=== PATIENT | female | born 1995 | race Caucasian/White ===

== ENCOUNTER 2016-11-10 13:31 | Emergency (ER) | payer BC ==
[2016-11-10 14:24] LABS: BILIRUBIN,URINE NEGATIVE (NEGATIVE); BLOOD/HEMOGLOBIN,URINE 1+ (NEGATIVE); GLUCOSE, URINE NEGATIVE (NEGATIVE); KETONES,URINE 1+ (NEGATIVE); LEUKOCYTE ESTERASE ,URINE 1+ (NEGATIVE); NITRITES,URINE NEGATIVE (NEGATIVE); PROTEIN,URINE 1+ (NEGATIVE); UROBILINOGEN,URINE NORMAL (NORMAL)
--- NOTE | 2016-11-10 14:36 | US ---
HISTORY: New onset lower abdominal pain. Right lower quadrant pain. Study: OB ultrasound greater than 14 weeks Comparison: April 20, 2016. Technique: Multiple grayscale and color flow Doppler images of the pelvis were obtained with focused evaluation of the fetus. Findings: A viable single intrauterine is identified with heart tones of 150 beats per minute. A breech presentation is observed. Normal amniotic fluid volume is observed. Evaluation of the fe fartun anatomy including the urinary bladder, and four-chamber heart are unremarkable. The extremities and spine are normal in their sonographic appearance. A three-vessel cord is observed. No intracr anial abnormality can be identified. Value Estimated Gestational Age BPD 3.7 cm 17 weeks 2 days HC 14.5 cm 17 weeks 5 days AC 11.6 cm 17 weeks 2 days FL 2.5 cm 17 weeks 4 days IMPRESSION: 1. Single intrauterine with an average ultrasound age of 17 weeks 3 days correspond to an estimated date of delivery of April 18, 2017. 2. No anatomical abnormalities can be identified. Reported By:
[2016-11-10 14:38] LABS: ALANINE AMINOTRANSFERASE 20 Units/L (12-78); ALBUMIN 3.5 g/dL (3.4-5.0); ALKALINE PHOSPHATASE 66 Units/L (46-116); ASPARTATE AMINO TRANSFERASE 16 Units/L (15-37); BLOOD UREA NITROGEN 5 mg/dL (7-18); CALCIUM 8.8 mg/dL (8.5-10.1); CHLORIDE 103 mmol/L (98-107); CREATININE 0.55 mg/dL (0.55-1.02); GLUCOSE 86 mg/dL (65-99); SODIUM 139 mmol/L (136-145); TOTAL PROTEIN 7.4 g/dL (6.4-8.2); eGFR BLACK RACES > 60 (>60); eGFR NON BLACK RACES > 60 (>60)
[2016-11-10 14:46] LABS: BASOPHILS # (AUTO) 0.1 X10^3/uL (0.0-0.1); BASOPHILS % (AUTO) 0.5 % (0.2-1.0); EOSINOPHILS # (AUTO) 0.2 x10^3/uL (0.0-0.2); EOSINOPHILS % (AUTO) 1.7 % (0.9-2.9); HEMATOCRIT 33.4 % (36.0-47.0); HEMOGLOBIN 11.4 g/dL (12.0-16.0); LYMPHOCYTES # (AUTO) 1.6 X10^3/uL (1.3-2.9); LYMPHOCYTES % (AUTO) 13.8 % (21.0-51.0); MEAN CORPUSCULAR HEMOGLOBIN 27.8 pg (27.0-34.0); MEAN CORPUSCULAR HGB CONC 34.1 g/dL (33.0-35.0); MEAN CORPUSCULAR VOLUME 81.5 fL (80.0-100.0); MEAN PLATELET VOLUME 7.7 fL (7.4-11.0); MONOCYTES # (AUTO) 0.6 x10^3/uL (0.3-0.8); NEUTROPHILS # (AUTO) 9.1 x10^3/uL (2.2-4.8); PLATELET COUNT 256 X10^3/uL (150.0-450.0); RED BLOOD COUNT 4.09 X10^6/uL (3.5-5.4); RED CELL DISTRIBUTION WIDTH 13.4 % (11.6-16.5); WHITE BLOOD COUNT 11.6 X10^3/uL (3.6-10.0)
[2016-11-10 14:54] LABS: APPEARANCE,URINE HAZY (CLEAR); BACTERIA,URINE 4+ /HPF (NEGATIVE); COLOR,URINE YELLOW (YELLOW); RBC,URINE 0-2 /HPF (NEGATIVE); SQUAMOUS EPITHELIAL CELL,UR FEW /HPF (NEGATIVE)
[2016-11-10 15:09] LABS: HCG,QUANTITATIVE 25951 mIU/mL (0-6)
[2016-11-10] MEDS ORDERED: MACROBID CAP 100 MG EXT REL PO ONE ×2 (15:09→15:37)
--- NOTE | 2016-11-10 15:38 | DR.PREG ---
HPI - Nurses Notes Reviewed Nurses Notes Review: Yes - Source History Provided: Patient - Mode of Arrival Mode of Arrival: Ambulatory - Context Complains of: Pelvic pain Blood Type: O, Neg - Location Location: pain: RLQ, LLQ, Suprapubic - Quality Pain: Sharp Vaginal fluid leakage color: None - Timing Came on: Suddenly Pain: Resolved Pain Frequency: Hours - Duration Pain Strength: Moderate - Severity Vaginal Bleeding: Other (NONE) Vaginal Leakage: None - Associated Signs & Symptoms Asociated signs & symptoms: None PMH - PMH Past Medical History: Hypothyroidism Past Surgical History: Yes Surgical History: Other - Family History Family Medical History: Cancer, Hypertension - Social History Do you use any recreational Drugs:: No ROS - Review of Systems Constitutional: No Symptoms Reported Eyes: No Symptoms Reported ENTM: No Symptoms Reported Respiratoy: No Symptoms Reported Cardiovascular: No Symptoms Reported Gastrointestinal/Abdominal: Abdominal Pain, Nausea Genitourinary: No Symptoms Reported. negative: Dysuria, Frequency, Hematuria Neurological: negative: Headache, Weakness, Dizziness Musculoskeletal: No Symptoms Reported Integumentary: No Symptoms Reported Hematologic/Lymphatic: No Symptoms Reported Endocrine: No Symptoms Reported All Other Systems: Reviewed and Negative PE - Vital Signs Vitals: Blood Pressure 118/87 - General Limitations: No Limitations General Appearance: Alert - Head Head Exam: Normal Inspection - Eyes Eye exam: Normal Appearance - ENT ENT Exam: Normal External Ear Exam - Neck Neck Exam: Trachea Midline. negative: Tenderness, Meningismus, Lymphadenopathy - Chest Chest Inspection: Symmetric Chest Wall Rise - Respiratory Respiratory Exam: Normal Lung Sounds Bilat Respiratory Exam: Bilateral Clear to Auscultation - Cardiovascular Cardiovascular Exam: Regular Rate, Normal Rhythm, Normal Heart Sounds - Abdominal Exam Abdominal Exam: Normal Bowel Sounds, Soft. negative: Tenderness - Back Back Exam: Normal Inspection - Extremeties Extremities Exam: Normal Inspection - Neurologic Neurological Exam: Alert, Oriented X3 - Psychiatric Psychiatric Exam: Anxious - Skin Skin Exam: Warm, Intact MDM - Additional Information Obtained Additional Information Obtained From: Family - Differential Diagnosis Differential Diagnosis: threatened, Discomfort of , Urinary tract infection Course - Treatment Treatment: SEE ORDERS - Consultation Consultation Comments: DISCUSS PATIENT WITH DR. ALAS. SHE WILL FOLLOW HER UP IN THE OFFICE. BED REST TILL SUNDAY. - Education/Counseling Education/Counseling: Patient, Education Educated On: Treatment, Diagnosis ROR - Labs Reviewed Laboratory Results Reviewed?: Yes Result Diagrams: 11/10/16 14:18 11/10/16 14:18 Laboratory: WBC 11.6 X10^3/uL (3.6-10.0) H 11/10/16 14:18 RBC 4.09 X10^6/uL (3.5-5.4) 11/10/16 14:18 Hgb 11.4 g/dL (12.0-16.0) L 11/10/16 14:18 Hct 33.4 % (36.0-47.0) L 11/10/16 14:18 MCV 81.5 fL (80.0-100.0) 11/10/16 14:18 MCH 27.8 pg (27.0-34.0) 11/10/16 14:18 MCHC 34.1 g/dL (33.0-35.0) 11/10/16 14:18 RDW 13.4 % (11.6-16.5) 11/10/16 14:18 Plt Count 256 X10^3/uL (150.0-450.0) 11/10/16 14:18 MPV 7.7 fL (7.4-11.0) 11/10/16 14:18 Neut % 79.0 % (42.0-75.0) H 11/10/16 14:18 Lymph % 13.8 % (21.0-51.0) L 11/10/16 14:18 [place] % 5.0 % (0.0-13.0) 11/10/16 14:18 Eos % 1.7 % (0.9-2.9) 11/10/16 14:18 Baso % 0.5 % (0.2-1.0) 11/10/16 14:18 Neut # 9.1 x10^3/uL (2.2-4.8) H 11/10/16 14:18 Lymph # 1.6 X10^3/uL (1.3-2.9) 11/10/16 14:18 [place] # 0.6 x10^3/uL (0.3-0.8) 11/10/16 14:18 Eos # 0.2 x10^3/uL (0.0-0.2) 11/10/16 14:18 Baso # 0.1 X10^3/uL (0.0-0.1) 11/10/16 14:18 Absolute Nucleated RBC 0.0 /100WBC 11/10/16 14:18 Sodium 139 mmol/L (136-145) 11/10/16 14:18 Corrected Sodium TNP 11/10/16 14:18 Potassium 3.4 mmol/L (3.5-5.1) L 11/10/16 14:18 Chloride 103 mmol/L (98-107) 11/10/16 14:18 Carbon Dioxide 25.0 mmol/L (21-32) 11/10/16 14:18 BUN 5 mg/dL (7-18) L 11/10/16 14:18 Creatinine 0.55 mg/dL (0.55-1.02) 11/10/16 14:18 Est GFR (MDRD) Af Amer > 60 (>60) 11/10/16 14:18 Est GFR (MDRD) Non-Af > 60 (>60) 11/10/16 14:18 Glucose 86 mg/dL (65-99) 11/10/16 14:18 Calcium 8.8 mg/dL (8.5-10.1) 11/10/16 14:18 Corrected Calcium TNP 11/10/16 14:18 Total Bilirubin 0.20 mg/dL (0.2-1.0) 11/10/16 14:18 AST 16 Units/L (15-37) 11/10/16 14:18 ALT 20 Units/L (12-78) 11/10/16 14:18 Alkaline Phosphatase 66 Units/L (46-116) 11/10/16 14:18 Total Protein 7.4 g/dL (6.4-8.2) 11/10/16 14:18 Albumin 3.5 g/dL (3.4-5.0) 11/10/16 14:18 Globulin 3.9 g/dL (2.5-4.5) 11/10/16 14:18 Albumin/Globulin Ratio 0.9 Ratio (1.1-2.1) L 11/10/16 14:18 HCG, Quant 84515 mIU/mL (0-6) H 11/10/16 14:18 Specimen Type Clean catch urine 11/10/16 14:18 Urine Color Yellow (YELLOW) 11/10/16 14:18 Urine Appearance Hazy (CLEAR) 11/10/16 14:18 Urine pH 6.0 (5.0 - 8.0) 11/10/16 14:18 Ur Specific [place] 1.020 (1.000-1.030) 11/10/16 14:18 Urine Protein 1+ (NEGATIVE) 11/10/16 14:18 Urine Glucose (UA) Negative (NEGATIVE) 11/10/16 14:18 Urine Ketones 1+ (NEGATIVE) 11/10/16 14:18 Urine Occult Blood 1+ (NEGATIVE) 11/10/16 14:18 Urine Nitrite Negative (NEGATIVE) 11/10/16 14:18 Urine Bilirubin Negative (NEGATIVE) 11/10/16 14:18 Urine Urobilinogen Normal (NORMAL) 11/10/16 14:18 Ur Leukocyte Esterase 1+ (NEGATIVE) 11/10/16 14:18 Urine RBC 0-2 /HPF (NEGATIVE) 11/10/16 14:18 Urine WBC 0-2 /HPF (NEGATIVE) 11/10/16 14:18 Ur Squamous Epith Cells Few /HPF (NEGATIVE) 11/10/16 14:18 Urine Bacteria 4+ /HPF (NEGATIVE) 11/10/16 14:18 Ur Culture Indicated? Yes/culture set up 11/10/16 14:18 - XRAY XRAY Interpreted by: Radiologist XRAY Findings: REPORT DISCUSS WITH PATIENT. - Diagnosis Discharge Problem: Abdominal pain affecting UTI (urinary tract infection) Qualifiers: Urinary tract infection type: site unspecified Hematuria presence: without hematuria Qualified Code(s): N39.0 - Urinary tract infection, site not specified - Discharge Plan Condition: Stable Prescriptions: Nitrofurantoin Macro [Macrobid Cap 100 mg Ext Rel] 100 mg PO BID #14 cap - Follow ups/Referrals Follow ups/Referrals: [facility],None [Primary Care Provider] - 3 days ZEENAT JACOBS [STAFF PHYSICIAN] - 11/14/16 - Instructions Instructions: Abdominal Pain During , [id number], Urinary Tract Infection, [id number], Pelvic Rest Additional Instructions: RETURN TO ED IF WORSE.
[2016-11-10] MEDS ORDERED: NS 1000 ML 1,000 ML with POTASSIUM CHLORIDE INJ 10 MEQ VIAL 10 MEQ IV SCH ×2 (16:00)
[2016-11-10 17:11] VITALS: BP 118/88
[2016-11-14 11:12] VITALS: BMI 22.6
== END 2016-11-10 16:55 | disposition home or self-care (01) ==
LOC: ER 13:31
DX: N39.0 Urinary tract infection, site not specified (principal); R10.84 Generalized abdominal pain; Z3A.17 17 weeks gestation of pregnancy
CPT/HCPCS: 36415; 76815; 80053; 81001; 84702; 85025; 86901; 87086; 96365; 99283; 99284; A4222; J3480

== ENCOUNTER 2016-12-26 14:31 | Emergency (ER) | payer BC ==
[2016-12-26 14:43] VITALS: BP 137/68; BMI 23.3
[2016-12-26 14:58] LABS: BILIRUBIN,URINE NEGATIVE (NEGATIVE); BLOOD/HEMOGLOBIN,URINE 5+ (NEGATIVE); GLUCOSE, URINE NEGATIVE (NEGATIVE); KETONES,URINE NEGATIVE (NEGATIVE); LEUKOCYTE ESTERASE ,URINE 3+ (NEGATIVE); NITRITES,URINE NEGATIVE (NEGATIVE); PROTEIN,URINE 1+ (NEGATIVE); UROBILINOGEN,URINE NORMAL (NORMAL)
[2016-12-26 15:19] LABS: APPEARANCE,URINE HAZY (CLEAR); COLOR,URINE YELLOW (YELLOW)
--- NOTE | 2016-12-26 16:15 | US ---
HISTORY: Vaginal bleeding Study: OB ultrasound greater than 14 weeks Comparison: None Technique: Multiple grayscale and color flow Doppler images of the pelvis were obtained with focused evaluation of the fetus. Findings: A viable single intrauterine is identified with heart tones of 142 beats per minute. A breech presentation is observed with a posterior and fundal placenta. Normal amniotic fluid vol ume is observed . Evaluation of the anatomy including the stomach, kidneys, urinary bladder, a nd four-chamber heart are unremarkable. The extremities and spine are normal in their sonographic a ppearance the umbilical cord is visualized. No intracranial abnormality can be identified. The ratios are within normal range. Value Estimated Gestational Age BPD 5.7 cm 23 weeks 4 days HC 21 cm 23 weeks 1 day AC 18 cm 23 weeks 4 days FL 4.4 cm 24 weeks 3 days. IMPRESSION: A viable single intrauterine with an average ultrasound age of 23 weeks 5 days correspond to an estimated date of delivery of 04/19/2017. No anatomical abnormalities can be identified. Reported By:
== END 2016-12-26 16:33 | disposition home or self-care (01) ==
LOC: ER 14:36
DX: O26.852 Spotting complicating pregnancy, second trimester (principal); Z3A.23 23 weeks gestation of pregnancy
CPT/HCPCS: 76815; 81003; 99284

== ENCOUNTER 2017-03-31 21:56 | Emergency (ER) | payer BC ==
[2017-03-31 22:02] VITALS: BMI 26.4
[2017-03-31 22:31] VITALS: BP 121/84
[2017-03-31 22:40] LABS: BASOPHILS # (AUTO) 0.1 X10^3/uL (0.0-0.1); BASOPHILS % (AUTO) 0.7 % (0.2-1.0); EOSINOPHILS # (AUTO) 0.2 x10^3/uL (0.0-0.2); EOSINOPHILS % (AUTO) 2.3 % (0.9-2.9); HEMATOCRIT 34.7 % (36.0-47.0); HEMOGLOBIN 12.2 g/dL (12.0-16.0); LYMPHOCYTES # (AUTO) 2.2 X10^3/uL (1.3-2.9); LYMPHOCYTES % (AUTO) 26.6 % (21.0-51.0); MEAN CORPUSCULAR HEMOGLOBIN 29.6 pg (27.0-34.0); MEAN CORPUSCULAR HGB CONC 35.1 g/dL (33.0-35.0); MEAN CORPUSCULAR VOLUME 84.3 fL (80.0-100.0); MEAN PLATELET VOLUME 9.9 fL (7.4-11.0); MONOCYTES # (AUTO) 0.7 x10^3/uL (0.3-0.8); MONOCYTES % (AUTO) 7.8 % (0.0-13.0); NEUTROPHILS # (AUTO) 5.2 x10^3/uL (2.2-4.8); NEUTROPHILS % (AUTO) 62.6 % (42.0-75.0); PLATELET COUNT 206 X10^3/uL (150.0-450.0); RED BLOOD COUNT 4.11 X10^6/uL (3.5-5.4); WHITE BLOOD COUNT 8.3 X10^3/uL (3.6-10.0)
[2017-03-31 22:44] LABS: BILIRUBIN,URINE NEGATIVE (NEGATIVE); BLOOD/HEMOGLOBIN,URINE NEGATIVE (NEGATIVE); GLUCOSE, URINE NEGATIVE (NEGATIVE); KETONES,URINE NEGATIVE (NEGATIVE); LEUKOCYTE ESTERASE ,URINE 1+ (NEGATIVE); NITRITES,URINE NEGATIVE (NEGATIVE); PROTEIN,URINE NEGATIVE (NEGATIVE); UROBILINOGEN,URINE NORMAL (NORMAL)
[2017-03-31 22:50] LABS: URIC ACID 4.8 mg/dL (2.6-6.0)
[2017-03-31 22:54] LABS: APPEARANCE,URINE CLEAR (CLEAR); BACTERIA,URINE 1+ /HPF (NEGATIVE); COLOR,URINE YELLOW (YELLOW); RBC,URINE NONE SEEN /HPF (NEGATIVE); SPERM,URINE FEW /HPF (NEGATIVE); SQUAMOUS EPITHELIAL CELL,UR RARE /HPF (NEGATIVE)
== END 2017-04-01 00:08 | disposition home or self-care (01) ==
LOC: ER 21:56
DX: R42 Dizziness and giddiness (principal); Z3A.37 37 weeks gestation of pregnancy
CPT/HCPCS: 36415; 81001; 83615; 84450; 84460; 84550; 85025; 85384; 85610; 85730; 99284

== ENCOUNTER 2017-04-04 06:01 | Inpatient (IN) | payer BC ==
[2017-04-04 06:26] VITALS: BMI 27.3
[2017-04-04 06:37] LABS: BILIRUBIN,URINE NEGATIVE (NEGATIVE); BLOOD/HEMOGLOBIN,URINE 1+ (NEGATIVE); GLUCOSE, URINE NEGATIVE (NEGATIVE); KETONES,URINE NEGATIVE (NEGATIVE); LEUKOCYTE ESTERASE ,URINE 2+ (NEGATIVE); NITRITES,URINE NEGATIVE (NEGATIVE); PROTEIN,URINE NEGATIVE (NEGATIVE); UROBILINOGEN,URINE NORMAL (NORMAL)
[2017-04-04 06:45] LABS: APPEARANCE,URINE HAZY (CLEAR); BACTERIA,URINE TRACE /HPF (NEGATIVE); COLOR,URINE YELLOW (YELLOW); SQUAMOUS EPITHELIAL CELL,UR MANY /HPF (NEGATIVE)
[2017-04-04] MEDS ORDERED: REGLAN INJ 10 MG VIAL IVP PRN ×4 (06:55→16:34)
[2017-04-04] MEDS ORDERED: D5LR 1L W PITOCIN 10 UNITS/L 10 UNITS/1,000 ML BAG IV PRN (06:55)
[2017-04-04] MEDS ORDERED: NUBAIN INJ 200 MG VIAL MULTIDOSE IVP PRN (06:55)
[2017-04-04] MEDS ORDERED: DILAUDID INJ IVP PRN ×2 (06:55→16:05)
[2017-04-04] MEDS ORDERED: PITOCIN IVP ONE (06:55)
[2017-04-04] MEDS ORDERED: PHENERGAN INJ 25 MG IV PRN ×2 (06:55→16:34)
[2017-04-04] MEDS ORDERED: LR 1000 ML IV 1,000 ML IV ONE ×3 (06:59→15:11)
[2017-04-04] MEDS ORDERED: D5 1/2 NS 1L W PITOCIN 20 UNITS/L 20 UNITS/1,000 ML BAG IV ONE (07:00)
[2017-04-04] MEDS ORDERED: D5LR 1L W PITOCIN 10 UNITS/L 10 UNITS/1,000 ML BAG IV ONE (07:00)
[2017-04-04] MEDS ORDERED: NAROPIN EPIDURAL 0.2% + FENTANYL 90MCG 60 ML EPI ONE (07:00)
[2017-04-04] MEDS ORDERED: PITOCIN ONE ×2 (07:00→15:28)
[2017-04-04] MEDS ORDERED: D5 1/2 NS 1000 ML 1,000 ML IV SCH (07:00)
[2017-04-04] MEDS ORDERED: D5 1/2 NS 1000 ML 1,000 ML IV ONE (07:01)
[2017-04-04 07:26] LABS: BASOPHILS # (AUTO) 0.1 X10^3/uL (0.0-0.1); BASOPHILS % (AUTO) 1.1 % (0.2-1.0); EOSINOPHILS # (AUTO) 0.3 x10^3/uL (0.0-0.2); EOSINOPHILS % (AUTO) 2.4 % (0.9-2.9); HEMATOCRIT 39.2 % (36.0-47.0); HEMOGLOBIN 13.6 g/dL (12.0-16.0); LYMPHOCYTES # (AUTO) 2.2 X10^3/uL (1.3-2.9); LYMPHOCYTES % (AUTO) 16.5 % (21.0-51.0); MEAN CORPUSCULAR HEMOGLOBIN 29.1 pg (27.0-34.0); MEAN CORPUSCULAR HGB CONC 34.6 g/dL (33.0-35.0); MONOCYTES # (AUTO) 0.8 x10^3/uL (0.3-0.8); MONOCYTES % (AUTO) 5.8 % (0.0-13.0); NEUTROPHILS # (AUTO) 10.1 x10^3/uL (2.2-4.8); NEUTROPHILS % (AUTO) 74.2 % (42.0-75.0); PLATELET COUNT 224 X10^3/uL (150.0-450.0); RED BLOOD COUNT 4.67 X10^6/uL (3.5-5.4); RED CELL DISTRIBUTION WIDTH 12.9 % (11.6-16.5); WHITE BLOOD COUNT 13.6 X10^3/uL (3.6-10.0)
[2017-04-04 07:33] LABS: BLOOD UREA NITROGEN 4 mg/dL (7-18); CALCIUM 9.6 mg/dL (8.5-10.1); CARBON DIOXIDE 22.5 mmol/L (21-32); CHLORIDE 104 mmol/L (98-107); CREATININE 0.73 mg/dL (0.55-1.02); SODIUM 135 mmol/L (136-145); eGFR BLACK RACES > 60 (>60); eGFR NON BLACK RACES > 60 (>60)
--- NOTE | 2017-04-04 07:54 | DR.OB ---
OB Quick Note - Assessment/Plan Assessment/Plan: L&D 04/04/17 at 7:18am S-No complaint. O-Afebrile,VSS [id number]=[id number] with good LTV, +accel, no decel. CTX=q 2-4 min. and mod. by palpation CVX=3cm/50%/-1/VTX AROM with clear fluid. IUPC and FSE placed. A-IUP at 38 0/7 weeks in active labor P-Begin pitocin augmentation Anticipate
[2017-04-04] MEDS ORDERED: NAROPIN EPIDURAL 0.2% + FENTANYL 90MCG EPI SCH (09:00)
--- NOTE | 2017-04-04 12:14 | DR.OB ---
OB Quick Note - Assessment/Plan Assessment/Plan: L&D 04/04/17 at 12:05pm Pitocin=16mu/min. S-No complaint. s/p epidural. O-Afebrile,VSS [id number]=[id number] with good LTV, +accel, no decel. CTX=q 1 1/2 to 2 min., about 35-55mmHg CVX=5cm/50%/-1/VTX A-IUP at 38 0/7 weeks in labor Rh- Hypothyroidism GERD Anxiety P-Cont. pitocin augmentation Anticipate
[2017-04-04] MEDS ORDERED: XYLOCAINE 2% and EPINEPHRINE 1:100,000 ONE (13:42)
[2017-04-04] MEDS ORDERED: ZITHROMAX INJ 500 MG VIAL 500 MG in NS 250 ML IV 250 ML IV SCH (14:00)
[2017-04-04] MEDS ORDERED: DURAMORPH ONE (14:56)
[2017-04-04] MEDS ORDERED: EPHEDRINE SULFATE INJ ONE (15:28)
[2017-04-04] MEDS ORDERED: VERSED ONE (15:28)
[2017-04-04] MEDS ORDERED: NS IRRIGATION 1000 ML 1,000 ML IR ONE (15:30)
[2017-04-04] MEDS ORDERED: PHENERGAN INJ 25 MG IVP PRN (16:05)
[2017-04-04] MEDS ORDERED: ZOFRAN INJ 4 MG VIAL IVP PRN ×2 (16:05→16:34)
[2017-04-04] MEDS ORDERED: BENADRYL INJ 50 MG VIAL IVP PRN ×2 (16:05→16:34)
[2017-04-04] MEDS ORDERED: ADACEL TDaP IM ONE ×2 (16:34→22:00)
[2017-04-04] MEDS ORDERED: TORADOL 30 MG VIAL IVP PRN (16:34)
[2017-04-04] MEDS ORDERED: HYPERRHO S/D (or RHOGAM) IM PRN (16:34)
[2017-04-04] MEDS ORDERED: NARCAN INJ IVP PRN (16:34)
[2017-04-04] MEDS ORDERED: PERCOCET TAB 5/325 MG PO PRN (16:34)
[2017-04-04] MEDS ORDERED: D5 1/2 NS 1000 ML 1,000 ML with PITOCIN 20 UNITS IV SCH ×2 (17:00)
[2017-04-04] MEDS: SYNTHROID 50 mcg TAB PO SCH (17:31)
[2017-04-04] MEDS: MYLICON TAB 80 MG CHEW PO PRN (20:43)
[2017-04-04] MEDS: ZANTAC PO SCH (20:43)
[2017-04-05 04:50] LABS: HEMATOCRIT 33.2 % (36.0-47.0); HEMOGLOBIN 11.4 g/dL (12.0-16.0)
[2017-04-05] MEDS: HEMOCYTE-PLUS PO SCH (09:20)
[2017-04-05] MEDS: COLACE CAP 100 MG PO SCH ×2 (09:20→20:34)
[2017-04-05] MEDS: PRENATAL PLUS PO SCH (09:21)
[2017-04-05] MEDS: PROzac PO SCH (09:21)
[2017-04-05] MEDS: SYNTHROID 50 mcg TAB PO SCH ×2 (09:21→16:13)
[2017-04-05] MEDS: ZANTAC PO SCH ×2 (09:21→20:35)
[2017-04-05] MEDS: MOTRIN TAB 800 MG PO PRN ×2 (10:30→20:34)
[2017-04-05] MEDS: BACTROBAN OINT TOP SCH ×2 (15:02→22:41)
[2017-04-05] MEDS: PERCOCET TAB 5/325 MG PO PRN (16:13)
[2017-04-05] MEDS: MYLICON TAB 80 MG CHEW PO PRN (23:47)
[2017-04-06] MEDS: PERCOCET TAB 5/325 MG PO PRN (04:31)
[2017-04-06] MEDS: BACTROBAN OINT TOP SCH (06:06)
[2017-04-06] MEDS: MYLICON TAB 80 MG CHEW PO PRN (06:47)
[2017-04-06] MEDS: COLACE CAP 100 MG PO SCH (08:24)
[2017-04-06] MEDS: PROzac PO SCH (08:24)
[2017-04-06] MEDS: PRENATAL PLUS PO SCH (08:24)
[2017-04-06] MEDS: HEMOCYTE-PLUS PO SCH (08:24)
[2017-04-06] MEDS: ZANTAC PO SCH (08:24)
[2017-04-06] MEDS: MOTRIN TAB 800 MG PO PRN (08:28)
[2017-04-06 12:10] VITALS: BP 135/80
== END 2017-04-06 12:00 | disposition home or self-care (01) | DRG 765 ==
LOC: ER 06:01 → LD 06:48 → MED/SURG 16:57
PROVIDERS: ADMIT Specialist; ATTEND Specialist
PROC: 3E0234Z Introduction of Serum, Toxoid and Vaccine into Muscle, Percutaneous Approach (ICD-10-PCS; 2017-04-04)
PROC: 3E0334Z Introduction of Serum, Toxoid and Vaccine into Peripheral Vein, Percutaneous Approach (ICD-10-PCS; 2017-04-04)
PROC: 10D00Z1 Extraction of Products of Conception, Low, Open Approach (ICD-10-PCS; principal; 2017-04-04 15:00)
DX: O99.283 Endocrine, nutritional and metabolic diseases complicating pregnancy, third trimester (principal); Z37.0 Single live birth; O99.62 Diseases of the digestive system complicating childbirth; K21.9 Gastro-esophageal reflux disease without esophagitis; O36.0930 Maternal care for other rhesus isoimmunization, third trimester, not applicable or unspecified; O99.343 Other mental disorders complicating pregnancy, third trimester; F41.8 Other specified anxiety disorders; O62.0 Primary inadequate contractions; Z23 Encounter for immunization
CPT/HCPCS: 36415; 80048; 81001; 85014; 85018; 85025; 85461; 86592; 86850; 86900; 86901; 87086; 94640; 99284; A4216; A4222; S0197; J1885; J2001; J2250; J2405; J2590; J2765; J2790; J7042; J7120